=== PATIENT | male | born 1990 | race Caucasian/White ===

== ENCOUNTER 2018-03-21 21:32 | Emergency (ER) ==
[2018-03-21] MEDS ORDERED: MORPHINE 2 MG/ML SYRINGE IVP STA (21:51)
[2018-03-21] MEDS ORDERED: ZOFRAN 4 MG/2 ML IVP STA (21:51)
[2018-03-21 21:58] VITALS: BMI 59.4
[2018-03-21 23:08] VITALS: BP 134/88; TEMP 97.4
[2018-03-22] MEDS ORDERED: DILAUDID 2 MG/ML SDV IVP STA (00:07)
--- NOTE | 2018-03-22 00:17 | CT ---
EXAM: CT pulmonary angiogram. HISTORY: Chest pain. Evaluate for pulmonary embolism. PROCEDURE: After the intravenous injection of contrast a CT pulmonary angiogram was performed with c ontiguous axial CT images of the chest with multiplanar reformats, MIP images and 3-D reformats. FINDINGS: There is normal enhancement of the pulmonary arteries with no evidence of pulmonary embolis m. The heart is within normal limits in size. The thoracic aorta and mediastinum are normal in appe arance. There is minimal bilateral dependent atelectasis. There is a 2.9 cm indeterminate left adren al nodule. The right adrenal gland and visualized portion of the liver are normal in appearance. The bones and soft tissues are unremarkable. Impression: No evidence of pulmonary embolism. Minimal bilateral dependent atelectasis. 2.9 cm indeterminate left adrenal nodule. Recommend non-emergent noncontrast CT of the abdomen for f urther evaluation.
--- NOTE | 2018-03-22 00:18 | CT ---
Exam: CT lumbar spine without contrast History: Lower back pain Technique: [address] lumbar spine with multiplanar reformations FINDINGS: Straightening of the lumbar lordosis. Posterior listhesis of L3 measuring about 3 mm. Po sterior listhesis of L5 measuring just under 3 mm. Normal alignment otherwise. Vertebral body height is maintained. No fracture lines or suspicious bony lesions. No immediate paravertebral soft tissu e abnormalities. The sacrum is intact. T12-L1: No central canal or foraminal stenosis. L1-L2: Disc space narrowing and anterior endplate spondylosis. Minor generalized disc bulge posteri viridiana with mild anterior sac indentation. Mild bilateral foraminal narrowing. L2-L3: Disc space narrowing with anterior endplate spondylosis. Minimal posterior disc changes with out central canal narrowing. No foraminal narrowing. L3-L4: Minor generalized disc bulge. Posterior listhesis of L3 measuring about 3 mm. Associated mi ld bilateral foraminal narrowing. Minimal sac indentation. L4-L5: Normal L5 S1: Posterior listhesis of L5 measuring less than 3 mm. No central canal narrowing. Mild to mod erate bilateral foraminal narrowing related to posterior listhesis. Impression: 1. No acute abnormality of the lumbar spine 2. Straightening and listhesis changes as described with associated foraminal narrowing at the level s described.
--- NOTE | 2018-03-22 01:02 | ED.PDOC ---
General ED Provider: Dr. 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 it was too much Time Seen by Physician: 21:40 Mode of Arrival: Walk-In Information Source: Patient, Family Exam Limitations: No limitations Primary Care Provider: MERLE BYRNE Nursing and Triage Documentation Reviewed and Agree: Yes Does patient meet sepsis criteria?: No System Inflammatory Response Syndrome: Not Applicable Sepsis Protocol: For patient's 13 years and over: Temp is 96.8 and below OR 101 and greater Pulse >90 BPM Resp >20/minute Acutely Altered Mental Status Are patient's symptoms suggestive of a new infection, such as: -Pneumonia -Skin, Soft Tissue -Endocarditis -UTI -Bone, Joint Infection -Implantable Device -Acute Abdominal Infection -Wound Infection -Meningitis -Blood Stream Catheter Infection -Unknown Musculoskeletal Complaint Exam - Back Pain Complaint/Exam Mechanism of Injury: Reports: No known trauma Onset/Duration: several mos Symptoms Are: Still present Timing: Constant Initial Severity: Mild Current Severity: Mild Location: Reports: Discrete Character: Reports: Aching, Spasmodic, Stiffness Aggravating: Reports: Movements, Lifting, Bending, Walking Alleviating: Reports: None Associated Signs and Symptoms: Denies: Swelling, Redness, Bruising, Fever, Weakness, Numbness, Tingling, Abdominal pain, Flank pain, Bladder incontinence, Bowel incontinence, Weight loss, Pain with weight bearing Related History: Reports: Similar episode TAD Risk Factors: Reports: None AAA Risk Factors: Reports: None Cauda Equina Risk Factors: Reports: None Epidural Abcess Risk Factors: Reports: None Related Surgical History: Reports: None Focal Tenderness: Yes Paraspinal Muscle Tenderness: Yes Paraspinal Muscle Spasm: No Scoliosis: No Lordosis: No Kyphosis: No SLR Test: Right Negative, Left Negative Hip Motion Testing Pain: Right Negative, Left Negative Focal Weakness: Present: None Focal Sensory Loss: Present: None Gait: Present: Abnormal Differential Diagnoses: Arthritis, Strain, Sprain Review of Systems - Review Of Systems Constitutional: Reports: No symptoms Eyes: Reports: No symptoms Ears, Nose, Mouth, Throat: Reports: No symptoms Respiratory: Reports: No symptoms Cardiac: Reports: No symptoms GI: Reports: No symptoms : Reports: No symptoms Musculoskeletal: Reports: Back pain, Muscle pain Skin: Reports: No symptoms Neurological: Reports: No symptoms Endocrine: Reports: No symptoms Hematologic/Lymphatic: Reports: No symptoms All Other Systems: Reviewed and Negative Past Medical History - Past Medical History Previously Healthy: Yes Endocrine: Reports: Unknown Cardiovascular: Reports: Unknown Respiratory: Reports: Unknown Hematological: Reports: Unknown Gastrointestinal: Reports: Unknown Genitourinary: Reports: Unknown Neuro/Psych: Reports: Unknown Musculoskeletal: Reports: Unknown Cancer: Reports: Unknown - Surgical History General Surgical History: Reports: Unknown - Family History Family History: Reports: Unknown - Social History Smoking Status: Never smoker Hx Substance Use: No Alcohol Screening: None - Immunizations Tetanus Shot up to Date: Yes Physical Exam - Physical Exam Appearance: Well-appearing Ill-appearing: Moderate Pain Distress: Moderate Eyes: STACI, EOMI, Conjunctiva clear ENT: Ears normal Neck: Supple Respiratory: Airway patent, Breath sounds clear, Breath sounds equal, Respirations nonlabored Cardiovascular: RRR GI/: Soft, Nontender, No masses, Bowel sounds normal, No Organomegaly Musculoskeletal: Normal strength, ROM intact, No edema, No calf tenderness Skin: Warm, Dry, Normal color Neurological: Sensation intact, Motor intact, Reflexes intact, Cranial nerves intact, Alert, Oriented Psychiatric: Affect appropriate, Mood appropriate Interpretation - Radiology Interpretation Radiology Interpretation By: Radiologist Radiology Results: Negative Exam Interpreted: CT Scan - EKG Interpretation Time of EKG #1: 01:03 Rate: Tachy Rhythm: Sinus Ectopy: None [place]: NL ST Segment: Normal Interpretation: sinus tachy Critical Care Note - Critical Care Note Total Time (mins): 0 Course - Course Hematology/Chemistry: 03/21/18 22:10 03/21/18 22:10 Orders, Labs, Meds: Lab Review 03/21/18 03/21/18 03/21/18 22:10 22:10 22:10 WBC 13.20 H RBC 4.87 Hgb 12.8 L Hct 40.8 L MCV 83.8 MCH 26.3 L MCHC 31.4 L RDW Coeff of Obey 14.6 Plt Count 319 Immature Gran % (Auto) 0.3 Neut % (Auto) 58.2 Lymph % (Auto) 34.9 Barron % (Auto) 4.9 Eos % (Auto) 0.8 Baso % (Auto) 0.9 Immature Gran # (Auto) 0.0 Neut # (Auto) 7.7 H Lymph # (Auto) 4.6 H Barron # (Auto) 0.7 Eos # (Auto) 0.1 Baso # (Auto) 0.1 Sodium 141 Potassium 4.0 Chloride 106 Carbon Dioxide 28 Anion Gap 11.0 BUN 12 Creatinine 0.92 Estimated GFR (MDRD) 99.00 BUN/Creatinine Ratio 13.04 Glucose 102 Calcium 9.0 Total Bilirubin 0.7 AST 38 ALT 41 Alkaline Phosphatase 82 Total Creatine Kinase 117 CK-MB (CK-2) 0.6 CK-MB (CK-2) % 0.14954 Troponin I < 0.012 Total Protein 7.2 Albumin 3.9 Globulin 3.3 Albumin/Globulin Ratio 1.18 Amylase 51 Lipase 39 Urine Color Urine Clarity Urine pH Ur Specific [place] Urine Protein Urine Glucose (UA) Urine Ketones Urine Blood Urine Nitrite Urine Bilirubin Urine Urobilinogen Ur Leukocyte Esterase 03/21/18 22:30 WBC RBC Hgb Hct MCV MCH MCHC RDW Coeff of [place]bey Plt Count Immature Gran % (Auto) Neut % (Auto) Lymph % (Auto) Barron % (Auto) Eos % (Auto) Baso % (Auto) Immature Gran # (Auto) Neut # (Auto) Lymph # (Auto) Barron # (Auto) Eos # (Auto) Baso # (Auto) Sodium Potassium Chloride Carbon Dioxide Anion Gap BUN Creatinine Estimated GFR (MDRD) BUN/Creatinine Ratio Glucose Calcium Total Bilirubin AST ALT Alkaline Phosphatase Total Creatine Kinase CK-MB (CK-2) CK-MB (CK-2) % Troponin I Total Protein Albumin Globulin Albumin/Globulin Ratio Amylase Lipase Urine Color Yellow Urine Clarity Clear Urine pH 5.5 Ur Specific [place] >=1.030 Urine Protein Negative Urine Glucose (UA) Negative Urine Ketones Negative Urine Blood Negative Urine Nitrite Negative Urine Bilirubin Negative Urine Urobilinogen 0.2 Ur Leukocyte Esterase Negative Orders Category Date Time Status EKG-(ED ONLY) Stat CARDIO 03/21/18 21:49 Completed NPO REMINDER: IMAGING ONCE CARE 03/21/18 21:50 Completed IV [ED IV/MEDIPORT/POWERPORT] .ONCE EMERGENCY 03/21/18 21:50 Active AMYLASE Stat LAB 03/21/18 22:10 Completed CBC W/ AUTO DIFF Stat LAB 03/21/18 22:10 Completed COMPREHENSIVE METABOLIC PANEL Stat LAB 03/21/18 22:10 Completed CREATINE KINASE Stat LAB 03/21/18 22:10 Completed LIPASE Stat LAB 03/21/18 22:10 Completed TROPONIN I Stat LAB 03/21/18 22:10 Completed URINALYSIS C & S IF INDICATED Stat LAB 03/21/18 22:30 Completed 0.9 % Sodium Chloride [Saline Flush] MEDS 03/21/18 21:50 Ordered 1 syr IVF PRN PRN Hydromorphone HCl [Dilaudid 2 mg/ml Sdv] MEDS 03/22/18 00:07 Discontinued 1 mg IVP ONCE STA Morphine Sulfate [Morphine 2 mg/ml Syringe] MEDS 03/21/18 21:51 Discontinued 2 mg IVP ONCE STA Ondansetron HCl/Pf [Zofran 4 mg/2 ml] MEDS 03/21/18 21:51 Discontinued 4 [address] IVP ONCE STA CT CHEST PE PROTOCOL Stat RADS 03/21/18 21:[address] LUMBAR SPINE W/O CONTRAST Stat RADS 03/21/18 21:51 Completed Medications Generic Name Dose Route Start Last Admin Trade Name Freq PRN Reason Stop Dose Admin Sodium Chloride 1 syr 03/21/18 21:50 Saline Flush IVF PRN PRN To flush IV Discontinued Medications Generic Name Dose Route Start Last Admin Trade Name Freq PRN Reason Stop Dose Admin Hydromorphone HCl 1 mg 03/22/18 00:07 03/22/18 00:09 Dilaudid 2 Mg/Ml Sdv IVP 03/22/18 00:08 1 mg ONCE STA Administration Morphine Sulfate 2 mg 03/21/18 21:51 03/21/18 22:17 Morphine 2 Mg/Ml Syringe IVP 03/21/18 21:52 2 mg ONCE STA Administration Ondansetron HCl 4 mg 03/21/18 21:51 03/21/18 22:17 Zofran 4 Mg/2 Ml IVP 03/21/18 21:52 4 mg ONCE STA Administration Vital Signs: Temp Pulse Resp BP Pulse Ox 03/21/18 23:07 97.4 F L 89 20 134/88 96 03/21/18 22:30 97 H 22 137/85 97 03/21/18 21:38 98.3 F 97 H 22 131/82 96 Departure - Departure Time of Disposition: 01:04 Disposition: HOME SELF-CARE Discharge Problem: Adrenal gland anomaly Low back pain Qualifiers: Chronicity: chronic Back pain laterality: unspecified Sciatica presence: with sciatica Sciatica laterality: sciatica laterality unspecified Qualified Code(s) : M54.40 - Lumbago with sciatica, unspecified side; G89.29 - Other chronic pain Instructions: Low Back Strain (ED) Condition: Good Pt referred to PMD for follow-up: Yes IPMP verified?: No Additional Instructions: norco 7.5mg q 4hrs prn pain #20--medrol dose pack---see dr byrne about your back and adrenal gland problem Allergies/Adverse Reactions: Allergies No Known Allergies Allergy (Verified 03/21/18 21:45) Home Medications: Ambulatory Orders Omeprazole [Prilosec] 20 mg PO QDAC 03/21/18 Disposition Discussed With: Patient, Family
== END 2018-03-22 01:10 | disposition home or self-care (01) ==
LOC: ED 21:32
DX: M54.40 Lumbago with sciatica, unspecified side (principal); G89.29 Other chronic pain; Q89.1 Congenital malformations of adrenal gland
CPT/HCPCS: 36415; 80053; 81001; 82150; 82550; 82553; 83690; 84484; 85025; 93005; 93010; 96374; 96375; 99283; 99284

== ENCOUNTER 2018-04-09 08:15 | Outpatient (RCR) ==
--- NOTE | 2018-03-28 13:24 | RS.OPPTEV2 ---
Date of Note: 03/28/18 Visit #: 1 Date of Evaluation: 03/28/18 Payer Source: Insurance ([employer]) Treatment Diagnosis: Acute LBP, with history of chronic LBP History of Condition/Mechanism of Injury:: Mr. Lora states he has had a history of back pain. However, reports his back has progressively gotten worse over the last several months . 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 Prior Level of Function.....Patient was independent with: ADL's, Self Care, Work /Vocation, Caregiving, Ambulation/Mobility, Community Integration/Access Functional Limitations: Self Care, ADL's, Pushing, Pulling, Lifting, Sitting, Standing, Bending, Squatting, Ambulation Current Subjective/complaints:: Mr. Lora reports pain across the low back. States it shoots up to his upper back and then goes back down to the left low back area. Reports tinging and numbness into the left LE all the way down to the foot at times. States he cannot tolerate any sitting, standing, or walking for too long. He has not tried heat or cold. He has Hydrocodone and [place], and states he mainly takes them at night or when he doesn't have to drive. States he has been off work since Saturday of this week and will be off until May 05. Medical History Medical History Comments:: Chronic back pain Diagnostic Testing/Imaging:: CT lumbar spine on 03/21/18: Impression: No aute abnormality of the lumbar spine. Straightening and listhesis changes with associated foraminal narrowing. Hx Home Medications: Hydrocodone, [place] Patient's Goals: His goal is to get some relief of back pain. Pain Assessment - Pain Description Pain Location: low back, LE's. Pain Description: Acute Current Pain Intensity: 8/10 Worst Pain Intensity: not quantified Functional Outcome Measure Oswestry LBP: 42 - G Codes & Severity Modifier G Codes & Modifier: NA Source of G Code score: NA Observation - Observation Posture: Forward Head, Rounded Shoulders, Decreased Lumbar Lordosis Gait - Gait Pattern General Gait Pattern Observation: No Deviations/Normal - ROM Comments: Lumbar flexion limited by patients abdomen and causes increased pain. Patient with trunk rotation to his right. - Strength Trunk Rotation: 4+ Good + Comments: Bilateral LE strength 4+to 5/5. - Special Tests SLR Test: Negative Left, Negative Right Seated Dural Stretch Test: Negative Left, Negative Right Palpation Comments:: patient demonstrates moderate increased muscle tone along the lumbar paraspinals, more on the right. Reports tenderness with Central PA's to the lumbar spine. Sensation - Sensation Comments: Reports no tingling or numbness at this time, sensation to light touch and deep pressure intact. Additional Comments: Additional Comments: right SLR to 45 degrees, left SLR to 50-55 degrees. - Treatment Modality: Electrical Stim Unattended Parameters/Method Applied: 95 peak volts X 15 mins with 4 large pads, uncrossed. Patient Position: Supine - Heat/Cryotherapy Treatment: Hot Pack (with Estim ) Interventions - Exercise/Activities/Manual Therapy Exercises/Activities: No given today. Manual Therapy: NA - Charges Timed Code Treatment Minutes: 15 mins Total Treatment Time: 49 mins Procedures billed for this date of service:: EVAL Medium,HP, Estim Un EVALUATION COMPLEXITY LEVEL EVALUATION COMPLEXITY LEVEL: HISTORY: Medium (Morbid obesity, chronic back pain) , EXAM OF BODY SYSTEMS: Medium, CLINICAL PRESENTATION: Medium, CLINICAL DECISION MAKING: Medium Assessment Assessment: Patient presents to therapy with a diagnosis of acute low back pain with sciatica, chronic low back pain. He presents today describing low back pain and LE symptoms. He has difficulty tolerating sitting, standing, walking, or lifting. He exhibits muscle guarding along the lumbar paraspinals and tenderness along the lumbar spine. Demonstrates imbalance of HS flexibility. He works at a job that requires freqent lifting and bending. He will benefit from modalities and exercises to reduce his pain, as well as education in back safety and lifting to prevent future back problems. Patient Education: Education of diagnosis, Body/Joint mechanics, Home Exercise Program, Home Safety, Activity Modification, Education of Plan of Care Rehab Potential: Good Short Term Goals Goal #1: Pt independent and compliant with HEP. Goal to be met by: 04/11/18 Goal #2: Muscle tone along lumbar paraspinals decreased to minimal. Goal to be met by: 04/11/18 Goal #3: Right SLR equal to the left. Goal to be met by: 04/11/18 Goal #4: LE symptoms localized to the low back. Goal to be met by: 04/11/18 Senior Care Goals Goal #1: Pt knows HEP and to continue ex's to maintain functional level at D/C. Goal to be met by: 05/02/18 Goal #2: Score on Oswestry LBP scale improved to 22. Goal to be met by: 05/02/18 Goal #3: Pt able to perform daily activities and ambulation w/ min. back pain. Goal to be met by: 05/02/18 Goal #4: Pt demo's good understanding of body mechanics and back safety w/ lifting. Goal to be met by: 05/02/18 Plan - Treatment to be Provided Procedures: Therapeutic Exercises, Therapeutic Activity, Manual Therapy, Patient Education Modalities: Electrical Stimulation, Ultrasound/Phonophoresis, Cryotherapy, Hot Packs - Treatment Plan Frequency: 3 X week Duration: 4 weeks ORDER # VISITS AND/OR THROUGH DATE: 05/02/18 - Treatment Code (1) Low back pain Code(s): M54.5 - LOW BACK PAIN Qualifiers: Chronicity: acute Back pain laterality: unspecified Sciatica presence: with sciatica Sciatica laterality: sciatica laterality unspecified Qualified Code(s): M54.40 - Lumbago with sciatica, unspecified side
--- NOTE | 2018-03-31 10:10 | RS.OPPTDN ---
Subjective Date of Note: 03/31/18 Visit #: 2 Date of Evaluation: 03/28/18 Payer Source: Insurance ([employer]) Treatment Diagnosis: Acute LBP, with history of chronic LBP Current Subjective/complaints:: Patient says his pain is heightened today. Reports treatment at eval felt good and relieved pain temporarily. Reports pain today at the low back and toward the R side and hip/buttock. He rates / 10. Says he is going to the MD today. Pain Assessment - Pain Description Current Pain Intensity: 02/21 - Treatment Modality: Electrical Stim Unattended Parameters/Method Applied: hivolt @ 115-125 pk volts 4 large pads x 20 mins Patient Position: Supine - Heat/Cryotherapy Treatment: Hot Pack Interventions - Exercise/Activities/Manual Therapy Exercises/Activities: Patient begins passive SKTC, HS, and lower trunk rotation to the L x 3 bilaterally. Patient educated on diagnosis, body mechanics, and treatment performed today. Total minutes of Exercise: 14 Manual Therapy: NA - Charges Timed Code Treatment Minutes: 14 Total Treatment Time: 38 Procedures billed for this date of service:: hp, estim (un), ex Assessment: Patient responding to treatment with temporary relief of back pain. Patient seems attentive to treatment plan. Limited range for all stretches. Patient Education: Education of diagnosis, Body/Joint mechanics, Home Exercise Program, Education of Plan of Care Short Term Goals Goal #1: Pt independent and compliant with HEP. Goal to be met by: 04/11/18 Goal #2: Muscle tone along lumbar paraspinals decreased to minimal. Goal to be met by: 04/11/18 Goal #3: Right SLR equal to the left. Goal to be met by: 04/11/18 Goal #4: LE symptoms localized to the low back. 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 Goal to be met by: 05/02/18 Goal #2: Score on Oswestry LBP scale improved to 22. Goal to be met by: 05/02/18 Goal #3: Pt able to perform daily activities and ambulation w/ min. back pain. Goal to be met by: 05/02/18 Goal #4: Pt demo's good understanding of body mechanics and back safety w/ lifting. Goal to be met by: 05/02/18 Plan PLAN OF CARE EXPIRES ON:: 05/02/18 ORDER # VISITS AND/OR THROUGH DATE: 05/02/18 PLAN: Patient to continue for improving back pain and flexibility
--- NOTE | 2018-04-02 10:18 | RS.OPPTDN ---
Subjective Date of Note: 04/02/18 Visit #: 3 Date of Evaluation: 03/28/18 Payer Source: Insurance ([employer]) Treatment Diagnosis: Acute LBP, with history of chronic LBP Current Subjective/complaints:: Patient says he feels relief with treatment, but also c/o this a.m. of pain wrapping around to his L side of abdomen. Reports continued pain to the R side of his back too. He said he may have twisted while playing with his dog causing the L side/abdominal pain. - Treatment Modality: Electrical Stim Unattended Parameters/Method Applied: Hivolt 4 large pads to the mid to lower lumbar paraspinals @ 190-220 pk volts x 20 mins in supine - Heat/Cryotherapy Treatment: Hot Pack Interventions - Exercise/Activities/Manual Therapy Exercises/Activities: Patient continues with passive stretches of: SKTC, HS, piriformis, and lower trunk rotation bilaterally x 3. He performs: ball squeezes, hip abd in hooklying with red tband x 10. Instructed him in ball squeezes at home. Total minutes of Exercise: 17 Manual Therapy: NA - Charges Timed Code Treatment Minutes: 17 Total Treatment Time: 37 Procedures billed for this date of service:: hp, estim (un), ex Assessment: Patient admitting improvement with back pain through treatments, but has begun with pain extending around to the L abdomen. Patient able to clarissa all therex today. Patient Education: Education of diagnosis, Body/Joint mechanics, Home Exercise Program Short Term Goals Goal #1: Pt independent and compliant with HEP. Goal to be met by: 04/11/18 Progress towards Goal:: Progressing Goal #2: Muscle tone along lumbar paraspinals decreased to minimal. Goal to be met by: 04/11/18 Goal #3: Right SLR equal to the left. Goal to be met by: 04/11/18 Goal #4: LE symptoms localized to the low back. 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 Goal to be met by: 05/02/18 Goal #2: Score on Oswestry LBP scale improved to 22. Goal to be met by: 05/02/18 Goal #3: Pt able to perform daily activities and ambulation w/ min. back pain. Goal to be met by: 05/02/18 Goal #4: Pt demo's good understanding of body mechanics and back safety w/ lifting. Goal to be met by: 05/02/18 Plan PLAN OF CARE EXPIRES ON:: 05/02/18 ORDER # VISITS AND/OR THROUGH DATE: 05/02/18 PLAN: Patient to continue for modalities and therex to improve flexibility.
--- NOTE | 2018-04-04 10:31 | RS.OPPTDN ---
Subjective Date of Note: 04/04/18 Visit #: 4 Date of Evaluation: 03/28/18 Payer Source: Insurance ([employer]) Treatment Diagnosis: Acute LBP, with history of chronic LBP Current Subjective/complaints:: Patient says his pain was high last night (04/23 ) while laying in bed. He said he turned positions to relieve pain. Reports it is signficantly better now 10/22. States it is closer to the spine pointing to the lumbar region and tingling down both legs to the feet intermittently. He says it is not as bad as it was last week. Pain Assessment - Pain Description Pain Location: 10/22, lumbar and lower thoracic paraspinals and tingling to both legs to feet intermittently. - Treatment Modality: Electrical Stim Unattended Parameters/Method Applied: 4 large pads hivolt uncrossed @ 220-235 pk volts x 20 mins to bilateral lower thoracic paraspinals to lower lumbar paraspinals Patient Position: Supine - Heat/Cryotherapy Treatment: Hot Pack Interventions - Exercise/Activities/Manual Therapy Exercises/Activities: Patient continues with passive stretches of: SKTC, HS, piriformis, and lower trunk rotation bilaterally x 3. He performs: ball squeezes, hip abd in hooklying with green tband x 10. Isometric hip flexion/abd , SAQ 4# bilaterally 2x10. Provided green tband for hooklying hip abd for home. Total minutes of Exercise: 22 Manual Therapy: NA - Charges Timed Code Treatment Minutes: 25 Total Treatment Time: 45 Procedures billed for this date of service:: hp, estim (un), ex Assessment: Patient experiencing elevated back pain yesterday for unknown reasons, but happening while laying in bed. He changed positions to gain relief. Pain has signficantly reduced now and has more toleration for progressive stretching. Patient Education: Body/Joint mechanics, Home Exercise Program, Education of Plan of Care Short Term Goals Goal #1: Pt independent and compliant with HEP. Goal to be met by: 04/11/18 Progress towards Goal:: Progressing Goal #2: Muscle tone along lumbar paraspinals decreased to minimal. Goal to be met by: 04/11/18 Progress towards Goal:: Progressing Goal #3: Right SLR equal to the left. Goal to be met by: 04/11/18 Progress towards Goal:: Progressing Goal #4: LE symptoms localized to the low back. Goal to be met by: 04/11/18 Examining Chair Assembler Goals Goal #1: Pt knows HEP and to continue ex's to maintain functional level at D/C. Goal to be met by: 05/02/18 Goal #2: Score on Oswestry LBP scale improved to 22. Goal to be met by: 05/02/18 Goal #3: Pt able to perform daily activities and ambulation w/ min. back pain. Goal to be met by: 05/02/18 Goal #4: Pt demo's good understanding of body mechanics and back safety w/ lifting. Goal to be met by: 05/02/18 Plan PLAN OF CARE EXPIRES ON:: 05/02/18 ORDER # VISITS AND/OR THROUGH DATE: 05/02/18 PLAN: Patient to continue 2-3 times per week as he has a co-pay each session and may choose to lessen his visits. He is to consistently perform HEP and be more aware of body mechanics/posture.
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
--- NOTE | 2018-04-09 09:46 | RS.OPPTDN ---
Subjective Date of Note: 04/09/18 Visit #: 6 Date of Evaluation: 03/28/18 Payer Source: Insurance ([employer]) Treatment Diagnosis: Acute LBP, with history of chronic LBP Current Subjective/complaints:: Patient says his back pain is much better. He says it is staying close to his spine and rates 3/10 right now. He says he is hoping to return to work on 05/05. 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 Pain Assessment - Pain Description Pain Location: lumbar paraspinals - Treatment Modality: Electrical Stim Unattended Parameters/Method Applied: hivolt 4 large pads placed near the lumbar spine vertically @ 280-295 pk volts x 20 mins Patient Position: Supine - Heat/Cryotherapy Treatment: Hot Pack Interventions - Exercise/Activities/Manual Therapy Exercises/Activities: Patient continues with passive stretches of: SKTC, HS, piriformis, and lower trunk rotation bilaterally x 3. He performs: ball squeezes, hip abd in hooklying with green tband x 10. Green tband for DF, Isometric hip flexion/abd, SAQ 4# bilaterally 2x10. Total minutes of Exercise: 22 Manual Therapy: NA - Charges Timed Code Treatment Minutes: 22 Total Treatment Time: 42 Procedures billed for this date of service:: hp, estim (un), ex Assessment: Patient experiencing decreased back pain and continues to localize. He is working on some of the HeP. He is gaining flexibility to bilateral HS through stretching and clarissa has improved greatly. He is progressing with resistive therex well and will work on more quad strengthing to aid in returning to work duties. He was encouraged to try minisquats at home throughout the day, low reps to also help build. Patient Education: Body/Joint mechanics, Home Exercise Program, Home Safety Patient demonstrates compliance with HEP?: Yes Short Term Goals Goal #1: Pt independent and compliant with HEP. Goal to be met by: 04/11/18 Progress towards Goal:: Progressing Goal #2: Muscle tone along lumbar paraspinals decreased to minimal. Goal to be met by: 04/11/18 Progress towards Goal:: Progressing Goal #3: Right SLR equal to the left. Goal to be met by: 04/11/18 Progress towards Goal:: Progressing Goal #4: LE symptoms localized to the low back. Goal to be met by: 04/11/18 Dbas Goals Goal #1: Pt knows HEP and to continue ex's to maintain functional level at D/C. Goal to be met by: 05/02/18 Goal #2: Score on Oswestry LBP scale improved to 22. Goal to be met by: 05/02/18 Goal #3: Pt able to perform daily activities and ambulation w/ min. back pain. Goal to be met by: 05/02/18 Goal #4: Pt demo's good understanding of body mechanics and back safety w/ lifting. Goal to be met by: 05/02/18 Plan PLAN OF CARE EXPIRES ON:: 05/02/18 ORDER # VISITS AND/OR THROUGH DATE: 05/02/18 PLAN: Continue for strengthening to bilateral LEs, assisted stretching, and modalities for reducing pain level and localizing to lumbar spine.
== END 2018-04-13 23:59 ==
PROVIDERS: ATTEND Family Medicine
DX: M54.42 Lumbago with sciatica, left side (principal); M54.41 Lumbago with sciatica, right side; G89.29 Other chronic pain

== ENCOUNTER 2018-04-30 08:15 | Outpatient (RCR) ==
--- NOTE | 2018-04-14 10:12 | RS.OPPTDN ---
Subjective Date of Note: 04/14/18 Visit #: 7 Date of Evaluation: 03/28/18 Payer Source: Insurance ([employer]) Treatment Diagnosis: Acute LBP, with history of chronic LBP Current Subjective/complaints:: Patient says his back pain has been more over the weekend and today is higher and running down both legs. He says he has had some personal stresses that has related to this elevation. He reports he has been trying to work on HEP. Pain Assessment - Pain Description Pain Location: elevated across the lumbar region with pain running down both legs to feet - Treatment Modality: Electrical Stim Unattended Parameters/Method Applied: hivolt 4 large pads L side controlled seperately as R back pain is higher than L @ 260-305 pk volts x 20 mins Patient Position: Supine - Heat/Cryotherapy Treatment: Hot Pack Interventions - Exercise/Activities/Manual Therapy Exercises/Activities: Patient continues with passive stretches of: SKTC, HS, piriformis, figure 4, and lower trunk rotation bilaterally x 3. He performs: ball squeezes, hip abd in hooklying with green tband x 10. Green tband for DF, Isometric hip flexion/abd, SAQ 4# bilaterally 2x10. Patient education on proper body mechanics. Total minutes of Exercise: 20 Manual Therapy: NA - Charges Timed Code Treatment Minutes: 20 Total Treatment Time: 40 Procedures billed for this date of service:: hp, estim (un), ex Assessment: Patient experiencing elevated pain to the low back extending down both legs. He continues to demo good flexibility with all therex despite pain increase. He verbalized improved symptoms following treatment today. Patient demonstrates compliance with HEP?: Yes Short Term Goals Goal #1: Pt independent and compliant with HEP. Goal to be met by: 04/11/18 Progress towards Goal:: Progressing Goal #2: Muscle tone along lumbar paraspinals decreased to minimal. Goal to be met by: 04/11/18 Progress towards Goal:: Progressing Goal #3: Right SLR equal to the left. Goal to be met by: 04/11/18 Progress towards Goal:: Progressing Goal #4: LE symptoms localized to the low back. Goal to be met by: 04/11/18 Emergency Room Physician Assistant Goals Goal #1: Pt knows HEP and to continue ex's to maintain functional level at D/C. Goal to be met by: 10/19/18 Goal #2: Score on Oswestry LBP scale improved to 22. Goal to be met by: 05/02/18 Goal #3: Pt able to perform daily activities and ambulation w/ min. back pain. Goal to be met by: 05/02/18 Goal #4: Pt demo's good understanding of body mechanics and back safety w/ lifting. Goal to be met by: 05/02/18 Plan PLAN OF CARE EXPIRES ON:: 05/02/18 ORDER # VISITS AND/OR THROUGH DATE: 05/02/18 PLAN: Patient to continue for advancement of flexibility and strengthening for trunk.
--- NOTE | 2018-04-16 09:58 | RS.OPPTDN ---
Subjective Date of Note: 04/16/18 Visit #: 8 Date of Evaluation: 03/28/18 Payer Source: Insurance ([employer]) Treatment Diagnosis: Acute LBP, with history of chronic LBP Current Subjective/complaints:: Patient says his back has been feeling good this morning. Says he had a flare up due to extra activity yesterday, but was able to do his stretches and fully relieved his pain. He denies pain into either leg and says pain is staying close to his spine. When pain does increase , it moves slightly to the L. He says he is eager to work on strengthening and exercises here and at home so that he may return to work. - Treatment Modality: Electrical Stim Unattended Parameters/Method Applied: 4 large pads at lumbar paraspinals controlled vertically @ 300-325 pk volts x 20 mins Patient Position: Supine - Heat/Cryotherapy Treatment: Hot Pack Interventions - Exercise/Activities/Manual Therapy Exercises/Activities: Patient continues with progressive stretches of: SKTC, HS , piriformis, figure 4, and lower trunk rotation bilaterally x 3. He performs: ball squeezes, hip abd in hooklying with blue tband x 10. Blue tband for DF, Isometric hip flexion/abd, SAQ increased to 5# bilaterally 3x10. Bridging 2x10. Patient education on proper body mechanics and adding leg press next session. Total minutes of Exercise: 22 Manual Therapy: NA - Charges Timed Code Treatment Minutes: 22 Total Treatment Time: 42 Procedures billed for this date of service:: hp, estim (un), ex Assessment: Patient actively managing his pain well at home by performing avoiding twisting activities and when performing extra outside work, he stops and performs HEP. He possesses eagerness and motivation to continue to attend PT and work on HEP to further improve his pain. Pain appears to be responding to treatment as he is admitting localization of pain. Patient Education: Body/Joint mechanics, Education of Plan of Care Patient demonstrates compliance with HEP?: Yes Short Term Goals Goal #1: Pt independent and compliant with HEP. Goal to be met by: 04/11/18 Progress towards Goal:: Met Goal #2: Muscle tone along lumbar paraspinals decreased to minimal. Goal to be met by: 04/11/18 Progress towards Goal:: Met Goal #3: Right SLR equal to the left. Goal to be met by: 04/11/18 Progress towards Goal:: Met Goal #4: LE symptoms localized to the low back. Goal to be met by: 04/11/18 Progress towards Goal:: Progressing Longterm Goals Goal #1: Pt knows HEP and to continue ex's to maintain functional level at D/C. Goal to be met by: 05/02/18 Goal #2: Score on Oswestry LBP scale improved to 22. Goal to be met by: 05/02/18 Goal #3: Pt able to perform daily activities and ambulation w/ min. back pain. Goal to be met by: 05/02/18 Goal #4: Pt demo's good understanding of body mechanics and back safety w/ lifting. Goal to be met by: 05/02/18 Plan PLAN OF CARE EXPIRES ON:: 05/02/18 ORDER # VISITS AND/OR THROUGH DATE: 05/02/18 PLAN: Patient attending BIW and then will attend neurosurgery consult next week.
--- NOTE | 2018-04-23 10:08 | RS.OPPTDN ---
Subjective Date of Note: 04/23/18 Visit #: 9 Date of Evaluation: 03/28/18 Payer Source: Insurance ([employer]) Treatment Diagnosis: Acute LBP, with history of chronic LBP Current Subjective/complaints:: Patient states that he had 10/10 pain in his back (no radicular symptoms) 2 mornings in a row, but pain is much milder now. He reports no reasoning for such an increase. He said the pain pill did not even touch this pain. He said he had performed stretches and said with that and allowing time to rest and set in, pain significantly decreased. He rates pain today 5/10 to low back only. He says he will be seeing the neurosurgeon after his PT session this morning and is hopeful that he will not suggest surgery. Reports he is able to stand and walk for longer periods of time - Treatment Modality: Electrical Stim Unattended Parameters/Method Applied: hivolt 4 large pads L controlled seperately from R @ 340-420 pk volts x 20 mins to the lumbar paraspinals Patient Position: Supine - Heat/Cryotherapy Treatment: Hot Pack (mid to low back and into hips) Interventions - Exercise/Activities/Manual Therapy Exercises/Activities: Patient continues with progressive stretches of: SKTC, HS , piriformis, figure 4, and lower trunk rotation bilaterally x 4. He performs: ball squeezes, hip abd in hooklying with blue tband x 10. Blue tband for DF, Isometric hip flexion/abd, SAQ increased to 5# bilaterally 3x10. Bridging 2x10. Begins leg presses @ 60 and 75# bilaterally 3x12 reps. Total minutes of Exercise: 22 Manual Therapy: NA - Charges Timed Code Treatment Minutes: 22 Total Treatment Time: 42 Procedures billed for this date of service:: hp, estim (un), ex Assessment: Patient previously with significant increase in pain rating 10/10. Pain meds did not seem to improve his symptoms the past 2 days, but eventually, with stretches and rest pain improved. He demo increased hamstring flexibility resulting in decreased pain today with treatment and clarissa higher level stim during modalities also. Progressing with quad strengthening with leg press and tolerance to prolonged standing and amb. Patient has neurosurgery consult today and is hoping to return to work 05/06/18. Patient Education: Body/Joint mechanics, Education of Plan of Care Patient demonstrates compliance with HEP?: Yes Short Term Goals Goal #1: Pt independent and compliant with HEP. Goal to be met by: 04/11/18 Progress towards Goal:: Met Goal #2: Muscle tone along lumbar paraspinals decreased to minimal. Goal to be met by: 04/11/18 Progress towards Goal:: Met Goal #3: Right SLR equal to the left. Goal to be met by: 04/11/18 Progress towards Goal:: Met Goal #4: LE symptoms localized to the low back. Goal to be met by: 04/11/18 Progress towards Goal:: Progressing Usp Goals Goal #1: Pt knows HEP and to continue ex's to maintain functional level at D/C. Goal to be met by: 05/02/18 Progress towards goal: Progressing Goal #2: Score on Oswestry LBP scale improved to 22. Goal to be met by: 05/02/18 Comments: reassess next session (Saturday) Goal #3: Pt able to perform daily activities and ambulation w/ min. back pain. Goal to be met by: 05/02/18 Progress towards goal: Progressing Goal #4: Pt demo's good understanding of body mechanics and back safety w/ lifting. Goal to be met by: 05/02/18 Progress towards goal: Progressing Plan PLAN OF CARE EXPIRES ON:: 05/02/18 ORDER # VISITS AND/OR THROUGH DATE: 05/02/18 PLAN: Patient has 1 session remaining
--- NOTE | 2018-04-25 09:51 | RS.OPPTDN ---
Subjective Date of Note: 04/25/18 Visit #: 10 Number of visits approved by Insurance: 12/ $35.00 copay Date of Evaluation: 03/28/18 Payer Source: Insurance ([employer]) Treatment Diagnosis: Acute LBP, with history of chronic LBP Current Subjective/complaints:: Patient says his pain is significantly less today. Reports his neurosurg appt went well. He is scheduled for an MRI Saturday and then he is set up to go through Bariatric treatment to lose 200# before eligible for surgery. He is pleased about this because he was worried about having complications with back surgery. He denies any increased symptoms with beginning leg press and feels strength has improved in the LE's. Pain Assessment - Pain Description Pain Location: 08/24 - Treatment Modality: Electrical Stim Unattended Parameters/Method Applied: hivolt 4 large pads @ 435-455 pk volts x 20 mins to bilateral lumbar paraspinals Patient Position: Supine - Heat/Cryotherapy Treatment: Hot Pack Interventions - Exercise/Activities/Manual Therapy Exercises/Activities: Patient continues with progressive stretches of: SKTC, HS , piriformis, figure 4, and lower trunk rotation bilaterally x 4. He completes Oswestry LBP Scale and ends with 2s/12 reps 60 and 75# on leg presses. Total minutes of Exercise: 19 Manual Therapy: NA - Objective Findings Observations,measurements,etc.: Oswestry: 5 or 10% impairment. Eval: 21 or 42 % impairment - Charges Timed Code Treatment Minutes: 19 Total Treatment Time: 39 Procedures billed for this date of service:: hp, estim (un), ex Assessment: Patient with reduced back pain along with progressive LE strengthening and demo improved flexibility especially noted with hamstrings. Tyree gregorio improved functional index per Oswestry from 42% impairment to now 10% . He is preparing for MRI next week and appt with Bariatric procedure in the upcoming months to improve back pain and results of, if needed, spinal intervention. Patient Education: Body/Joint mechanics, Home Exercise Program, Education of Plan of Care Patient demonstrates compliance with HEP?: Yes Short Term Goals Goal #1: Pt independent and compliant with HEP. Goal to be met by: 04/11/18 Progress towards Goal:: Met Goal #2: Muscle tone along lumbar paraspinals decreased to minimal. Goal to be met by: 04/11/18 Progress towards Goal:: Met Goal #3: Right SLR equal to the left. Goal to be met by: 04/11/18 Progress towards Goal:: Met Goal #4: LE symptoms localized to the low back. Goal to be met by: 04/11/18 Progress towards Goal:: Progressing Senior Living Goals Goal #1: Pt knows HEP and to continue ex's to maintain functional level at D/C. Goal to be met by: 05/02/18 Progress towards goal: Progressing Goal #2: Score on Oswestry LBP scale improved to 22. Goal to be met by: 05/02/18 Progress towards goal: Met Goal #3: Pt able to perform daily activities and ambulation w/ min. back pain. Goal to be met by: 05/02/18 Progress towards goal: Progressing Goal #4: Pt demo's good understanding of body mechanics and back safety w/ lifting. 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 Then, prepare D/c.
--- NOTE | 2018-04-30 08:35 | RS.OPPTDN ---
Subjective Date of Note: 04/28/18 Visit #: 10 Number of visits approved by Insurance: 3x4 through 06/26/18 Date of Evaluation: 03/28/18 Payer Source: Insurance ([employer]) Treatment Diagnosis: Acute LBP, with history of chronic LBP Current Subjective/complaints:: Patient says his back is hurting a little today because of the damp weather. States he is having an MRI today and anticipating it. - Treatment Modality: Electrical Stim Unattended Parameters/Method Applied: hivolt 4 large pads @ 400-435 pk volts x 20 mins to bilateral lumbar paraspinals Patient Position: Supine - Heat/Cryotherapy Treatment: Hot Pack Interventions - Exercise/Activities/Manual Therapy Exercises/Activities: Patient continues with progressive stretches of: SKTC, HS , piriformis, figure 4, and lower trunk rotation bilaterally x 4. He completes Oswestry LBP Scale and ends with 2s/12 reps 75 and 90# and 105# on leg presses. Total minutes of Exercise: 18 Manual Therapy: NA - Objective Findings Observations,measurements,etc.: Oswestry LBP Scale: 5 or 10% impairment. Now, demo no limitations with prolonged sitting, personal care, lifting, traveling, sleeping, and pain rapidly improving. Limitations remain with prolonged walking , standing. - Charges Timed Code Treatment Minutes: 18 Total Treatment Time: 38 Procedures billed for this date of service:: hp, estim (un), ex Assessment: Patient experiencing elevated pain today related to the damp weather , but easily reduced with modalities today. Good toleration of increased poundage on leg press today. Improved Oswestry LBP Scale from 42% to 10% currently. Patient Education: Home Exercise Program Patient demonstrates compliance with HEP?: Yes Short Term Goals Goal #1: Pt independent and compliant with HEP. Goal to be met by: 04/11/18 Progress towards Goal:: Met Goal #2: Muscle tone along lumbar paraspinals decreased to minimal. Goal to be met by: 04/11/18 Progress towards Goal:: Met Goal #3: Right SLR equal to the left. Goal to be met by: 04/11/18 Progress towards Goal:: Met Goal #4: LE symptoms localized to the low back. Goal to be met by: 04/11/18 Progress towards Goal:: Progressing Senior Care Goals Goal #1: Pt knows HEP and to continue ex's to maintain functional level at D/C. Goal to be met by: 05/02/18 Progress towards goal: Progressing Goal #2: Score on Oswestry LBP scale improved to 22. Goal to be met by: 05/02/18 Progress towards goal: Met Goal #3: Pt able to perform daily activities and ambulation w/ min. back pain. Goal to be met by: 05/02/18 Progress towards goal: Progressing Goal #4: Pt demo's good understanding of body mechanics and back safety w/ lifting. Goal to be met by: 05/02/18 Progress towards goal: Progressing Plan Dates of Senior Care Goals: 05/02/18 Expiration date of current Insurance Approval:: 06/26/18 PLAN: Patient to continue x 1 more session
--- NOTE | 2018-04-30 10:07 | RS.OPPTDN ---
Subjective Date of Note: 04/30/18 Visit #: 11 Number of visits approved by Insurance: 3x4, approved through 06-26-18 [email or web address] copay Date of Evaluation: 03/28/18 Payer Source: Insurance ([email or web address]) Treatment Diagnosis: Acute LBP, with history of chronic LBP Current Subjective/complaints:: Patient says he had no difficulty having his MRI Saturday and says he was released to return to work Saturday, May 05. He says he is eager to work and will be conscientious about bending down and using better body mechanics when needed. He also says that he has been sleeping better and pain is very light presently. Pain Assessment - Pain Description Pain Location: low back - Treatment Modality: Electrical Stim Unattended Parameters/Method Applied: hivolt 4 large pads to the lumbar paraspinals @ 500 pk volts x 20 mins Patient Position: Supine - Heat/Cryotherapy Treatment: Hot Pack Interventions - Exercise/Activities/Manual Therapy Exercises/Activities: Patient continues with progressive stretches of: SKTC, HS , piriformis, figure 4, and lower trunk rotation bilaterally x 4. Completes treatment with advancing on Leg press @ 2s/15 reps 90#, 105#, 120# on leg presses. Total minutes of Exercise: 18 Manual Therapy: NA - Charges Timed Code Treatment Minutes: 18 Total Treatment Time: 38 Procedures billed for this date of service:: hp, estim (un), ex Assessment: Patient has progressed well throughout therapy with regards to reduced pain level and improving with progressed LE strengthening. He is proactive with self stretching and aware of good body mechanics to return to work next week. Patient Education: Body/Joint mechanics, Home Exercise Program Patient demonstrates compliance with HEP?: Yes Short Term Goals Goal #1: Pt independent and compliant with HEP. Goal to be met by: 04/11/18 Progress towards Goal:: Met Goal #2: Muscle tone along lumbar paraspinals decreased to minimal. Goal to be met by: 04/11/18 Progress towards Goal:: Met Goal #3: Right SLR equal to the left. Goal to be met by: 04/11/18 Progress towards Goal:: Met Goal #4: LE symptoms localized to the low back. Goal to be met by: 04/11/18 Progress towards Goal:: Progressing [facility] Goals Goal #1: Pt knows HEP and to continue ex's to maintain functional level at D/C. Goal to be met by: 05/02/18 Progress towards goal: Met Goal #2: Score on Oswestry LBP scale improved to 22. Goal to be met by: 05/02/18 Progress towards goal: Met Goal #3: Pt able to perform daily activities and ambulation w/ min. back pain. Goal to be met by: 05/02/18 Progress towards goal: Met Goal #4: Pt demo's good understanding of body mechanics and back safety w/ lifting. Goal to be met by: 05/02/18 Progress towards goal: Met Plan Dates of [facility] Goals: 05/02/18 Expiration date of current Insurance Approval:: 05/02/18 PLAN: Discharge and returning to work next week
--- NOTE | 2018-05-12 11:44 | RS.QUICKDC ---
Discharge from PT Date of Discharge: 05/12/18 Number of Visits: 11 Reason for Discharge: Patient attended through order and approved visits. He has vocalized reduced back pain and improved strength for his LEs in preparation to return to work. He is pleased with his progress and is eager to begin a weight loss procedure in the next few months. He is now able to self stretch with little difficulty and is compliant with other HEP. Assisted stretching and modalities were required due to pain level, size and difficulty with compliancy with self stretching at home, and progressing with strengthening to trunk and LEs with isometrics and leg press. He is planning to be released to work next week and will be having follow up with MD about other procedures that may decrease his pain and will be focusing on that. Tyree has met 7 of 8 goals established. For specific treatment, see daily notes.
== END 2018-05-14 23:59 ==
PROVIDERS: ATTEND Family Medicine
DX: M54.42 Lumbago with sciatica, left side (principal); M54.41 Lumbago with sciatica, right side; G89.29 Other chronic pain